=== PATIENT | female | born 1975 | race Hispanic/Latino ===

== ENCOUNTER 2017-03-31 07:54 | Outpatient (CLI) | payer OTHER ==
--- NOTE | 2017-03-31 11:49 | MRI ---
LUMBAR SPINEM RI NONCONTRAST: Date: 03/31/17 INDICATION: Left groin, hip pain, low back pain. No prior imaging for comparison. FINDINGS: Vertebral body heights of lumbar spine are maintained. No acute marrow edema or disc space edema. Spi nal alignment is maintained. Conus medullaris is normal in morphology and terminates at the L1 level. No acute pathology within imaged retroperitoneum. No significant signal abnormalities of the imaged sacral marrow. There is a congenital narrowing of the AP diameter of the vertebral canal on the basis of shortened p edicles. There is no significant, extrinsic mass effect upon the thecal sac. Minimal bulging discs ar e seen, notably at the L2-3 and L3-4 level. There is multilevel bilateral facet hypertrophy. No high grade lumbar spine neural foraminal stenosis. 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 There is multilevel facet osteoarthritis, moderate in degree, bilaterally. POS: ZAINAB
== END 2017-03-31 07:55 | disposition home or self-care (01) ==
LOC: MRI 07:54
PROVIDERS: ATTEND Family Medicine
DX: M54.5 Low back pain (principal); M25.552 Pain in left hip; E66.01 Morbid (severe) obesity due to excess calories; M51.26 Other intervertebral disc displacement, lumbar region; M47.816 Spondylosis without myelopathy or radiculopathy, lumbar region
CPT/HCPCS: 72148

== ENCOUNTER → 2017-08-31 | Day surgery (SDC) | payer OTHER ==
[2017-08-30 12:13] VITALS: BMI 56.5
[~2017-08-31] MED LIST: Lidocaine 1% PF 5 ML VIAL ONE; PROPOFOL 200 MG/20 ML VIAL ONE
--- NOTE | 2017-08-31 13:15 | OP ---
DATE OF PROCEDURE: 08/31/2017 PROCEDURE: Esophagogastroduodenoscopy with biopsy of the stomach and esophagus and esophageal bougie dilation. PREOPERATIVE DIAGNOSIS: Gastroesophageal reflux with worsening symptoms despite symptomatic treatmen t. OPERATIVE NOTE: Informed consent was obtained from the patient. She was sedated with total intraven ous anesthesia. The bite block was placed and the endoscope was advanced easily to the second portio n of the duodenum and retroflexion was performed in the stomach. The esophagus had mild slight narro wing in the distal esophagus with a few possible concentric rings. Biopsies were obtained from the e sophagus to rule out eosinophilic esophagitis. The esophagus was dilated to 18 mm (54 Welsh) with a Hyman dilator. On second-look endoscopy, there was no change after the dilation. Mild grade A er osive esophagitis was noted in the distal esophagus. There were findings of portal hypertensive courtney ropathy in the fundus and proximal body of the stomach. There was a snakeskin appearance with centra l erythematous patches. The antrum of the stomach was unremarkable. Biopsies were obtained from the stomach to rule out H. pylori. The pylorus and first and second portions of the duodenum were fermin l. IMPRESSION: 1. Slight narrowing of the distal esophagus, biopsied to rule out eosinophilic esophagitis and dilat ed to 18 mm with a Hyman dilator. There was no change in the esophagus on second-look endoscopy. 2. Grade A erosive esophagitis. 3. Portal hypertensive gastropathy in the fundus and proximal body. Given her family history with 3 brothers with cirrhosis, certainly findings are concerning for the potential for cirrhosis in this p atient. 4. Otherwise, normal esophagogastroduodenoscopy. Gastric biopsies were taken to rule out Helicobact er pylori. RECOMMENDATIONS: 1. We will check liver tests and PT/INR. Check hepatitis B surface antigen and antibody. Hepatitis B core total antibody. Hepatitis C antibody. Check alpha 1 antitrypsin level and ceruloplasmin. C heck iron saturation and ferritin. Check smooth muscle antibody and mitochondrial antibody. 2. She will require ultrasound of the liver. However, this will need to be scheduled at a later tima e since she just received significant air insufflation to the stomach and small intestine, which may interfere with ultrasound images. This will need to be scheduled through the assisted system. 3. Await histopathology. 4. Start omeprazole 40 mg p.o. daily. 5. Follow up in GI clinic in 4 weeks.
[2017-08-31 14:42] LABS: #Basophils 0.1 thou/uL (0.0-0.2); #Eosinphils 0.1 thou/uL (0.0-0.7); #Monocytes 0.4 thou/uL (0.11-0.59); #Neutrophils 6.7 thou/uL (1.40-6.50); %Basophils 0.5 % (0.0-1.0); %Eosinophils 0.8 % (0.0-10.0); %Lymphocytes 29.4 % (21.0-51.0); %Monocytes 4.1 % (0.0-10.0); %Neutrophils 65.2 % (42.0-75.0); Hemoglobin 12.9 g/dL (12.0-16.0); Mean Corpuscular HGB CONC 33.9 g/dL (32.0-36.0); Mean Corpuscular Hemoglobin 31.7 pg (27.0-31.0); Mean Corpuscular Volume 93.5 fl (81.0-99.0); Platelet Count 303 thou/uL (130-400); RBC Distribution Width 12.2 % (11.5-14.5); Red Blood Cell (RBC) Count 4.08 mill/uL (4.20-5.40); White Blood Cell (WBC) Count 10.2 thou/uL (4.8-10.8)
[2017-08-31 14:48] LABS: Prothrombin Time 13.6 SEC (12.0-14.7)
[2017-08-31 15:02] LABS: ALT (SGPT) 10 U/L (8-55); AST (SGOT) 12 U/L (5-34); Albumin 3.9 g/dL (3.5-5.0); Alkaline Phosphatase 68 U/L (40-150); Anion Gap 13 mmol/L (10-20); BUN (Urea Nitrogen) 11 mg/dL (7.0-18.7); Bilirubin, Total 0.6 mg/dL (0.2-1.2); Calc. Creatinine Clearance 240 mL/min (70-130); Calcium 8.8 mg/dL (7.8-10.44); Carbon Dioxide 27 mmol/L (22-29); Chloride 100 mmol/L (98-107); Estimated GFR-MDRD Greater than 90; Globulin 3.3 g/dL (2.4-3.5); Glucose 112 mg/dL (70-105); Iron 109 ug/dL (50-170); Iron Binding Capacity, Total 301 mcg/dL (265-497); Potassium 3.6 mmol/L (3.5-5.1); Protein, Total 7.2 g/dL (6.0-8.3); Sodium 136 mmol/L (136-145)
[2017-08-31 15:19] LABS: Ferritin 71.87 ng/mL (10-291)
[2017-08-31 15:31] LABS: HBSAB Concentration 1.48 mIU/mL; HBSAg Index 0.17 S/CO (0-0.99); Hep B Core Total Ab Non-Reactive (NonReactive); Hep B Core Total Index 0.08 S/CO (0-0.79); Hep B Surf AB Non-Reactive (NonReactive); Hep B Surf Ag Non-Reactive S/CO (NonReactive); Hep C IgG Ab Non-Reactive (NonReactive); Hep C Index 0.09 S/CO (0-0.79)
[2017-09-01 12:00] LABS: EliA Vaculitis New Method **** NEW METHOD ****
== END ==
LOC: SDC 10:04
PROVIDERS: ATTEND Internal Medicine Gastroenterology
PROC: 0DB68ZX Excision of Stomach, Via Natural or Artificial Opening Endoscopic, Diagnostic (ICD-10-PCS; principal; 2017-08-31)
PROC: 0DB Gastrointestinal System, Excision (ICD-10-PCS; principal; 2017-08-31)
PROC: 0D757ZZ Dilation of Esophagus, Via Natural or Artificial Opening (ICD-10-PCS; principal; 2017-08-31)
DX: K22.10 Ulcer of esophagus without bleeding (principal); K29.50 Unspecified chronic gastritis without bleeding; B96.81 Helicobacter pylori [H. pylori] as the cause of diseases classified elsewhere; K76.6 Portal hypertension; K31.89 Other diseases of stomach and duodenum; I10 Essential (primary) hypertension; E66.9 Obesity, unspecified; G47.30 Sleep apnea, unspecified; Z88.0 Allergy status to penicillin; Z79.899 Other long term (current) drug therapy; Z68.43 Body mass index [BMI] 50.0-59.9, adult
CPT/HCPCS: 36415; 80053; 82103; 82390; 82728; 83516; 83540; 83550; 85025; 85610; 86704; 86706; 86803; 87340; 88305; 88312; 88313; J2001; J2704

== ENCOUNTER 2017-10-08 07:43 | Outpatient (CLI) | payer OTHER | END 2017-10-08 07:44 | disposition home or self-care (01) | LOC: BICULT 07:43 | PROVIDERS: ATTEND Family Medicine | DX: K76.6 Portal hypertension (principal); K76.0 Fatty (change of) liver, not elsewhere classified; E66.9 Obesity, unspecified; Z90.49 Acquired absence of other specified parts of digestive tract | CPT/HCPCS: 76705 ==

== ENCOUNTER 2018-02-14 10:33 | Outpatient (CLI) | payer OTHER ==
--- NOTE | 2018-02-14 13:15 | RAD ---
LEFT HIP 2 VIEWS: HISTORY: Acute onset of pain. COMPARISON: None. FINDINGS: There is mild loss of joint space height and minimal osteophyte formation along the superolateral asp ect of the acetabulum. Contour of the femoral head is maintained. There is no fracture. IMPRESSION: Mild degenerative change. POS: EILEEN
== END 2018-02-14 10:34 | disposition home or self-care (01) ==
LOC: RAD 10:33
PROVIDERS: ATTEND Nurse Practitioner Family
DX: M25.552 Pain in left hip (principal); M16.12 Unilateral primary osteoarthritis, left hip